=== PATIENT | male | born 1985 | race Caucasian/White ===

== ENCOUNTER 2018-12-15 22:12 | Observation (INO) | payer OTHER, SELFPAY ==
[~2018-12-15 22:12] MED LIST: ISOVUE-370 76%-LOCM 1 ML ONE
[2018-12-15] MEDS ORDERED: Fentanyl 100 MCG/2 ML VIAL ONE ×2 (22:17→23:52)
[2018-12-15] MEDS ORDERED: Ondansetron PF 4 MG/2 ML Vial ONE (22:37)
[2018-12-15 22:43] LABS: #Eosinphils 0.1 thou/uL (0.0-0.7); #Lymphocytes 2.5 thou/uL (1.20-3.40); #Neutrophils 7.9 thou/uL (1.40-6.50); %Basophils 0.3 % (0.0-1.0); %Eosinophils 1.1 % (0.0-10.0); %Lymphocytes 21.4 % (21.0-51.0); %Monocytes 8.5 % (0.0-10.0); %Neutrophils 68.7 % (42.0-75.0); Hemoglobin 15.1 g/dL (14.0-18.0); Mean Corpuscular HGB CONC 34.3 g/dL (32.0-36.0); Mean Corpuscular Hemoglobin 29.9 pg (27.0-31.0); Mean Corpuscular Volume 87.1 fL (78.0-98.0); Mean Platelet Volume 6.9 fL (7.4-10.4); Platelet Count 242 thou/uL (130-400); Red Blood Cell (RBC) Count 5.06 mill/uL (4.70-6.10); White Blood Cell (WBC) Count 11.5 thou/uL (4.8-10.8)
[2018-12-15 22:45] LABS: Prothrombin Time 12.8 SEC (12.0-14.7)
[2018-12-15 22:52] LABS: PTT 21.9 SEC (22.9-36.1)
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
[2018-12-15 23:05] LABS: ALT (SGPT) 36 U/L (8-55); AST (SGOT) 34 U/L (5-34); Albumin 4.5 g/dL (3.5-5.0); Alcohol Less than 10 mg/dL (Less than 10); Alkaline Phosphatase 64 U/L (40-150); Anion Gap 15 mmol/L (10-20); BUN (Urea Nitrogen) 20 mg/dL (8.9-20.6); Bilirubin, Total 0.5 mg/dL (0.2-1.2); Calc. Creatinine Clearance 0 mL/min (70-130); Calcium 9.9 mg/dL (7.8-10.44); Carbon Dioxide 24 mmol/L (22-29); Chloride 105 mmol/L (98-107); Estimated GFR-MDRD 88; Globulin 2.7 g/dL (2.4-3.5); Glucose 91 mg/dL (70-105); Potassium 3.5 mmol/L (3.5-5.1); Protein, Total 7.2 g/dL (6.0-8.3); Sodium 140 mmol/L (136-145)
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
[2018-12-16] MEDS ORDERED: Lidocaine 1% w/Epinephrine 1:100K 20 ML VIAL ONE (00:21)
[2018-12-16] MEDS ORDERED: Ondansetron PF 4 MG/2 ML Vial ONE (03:09)
[2018-12-16] MEDS ORDERED: Morphine 4 MG/ML VIAL ONE (03:49)
[2018-12-16] MEDS ORDERED: Ketorolac Tromethamine 30 MG/ML VIAL ONE (03:49)
[2018-12-16] MEDS ORDERED: Ketorolac Tromethamine 30 MG/ML VIAL IVP SCH (05:51)
[2018-12-16] MEDS ORDERED: Dextrose 50% Abboject 50 ML SYRINGE SLOW IVP PRN (05:51)
[2018-12-16] MEDS ORDERED: Scopolamine 1.5 mg/72 hour Patch TD SCH (05:51)
[2018-12-16] MEDS ORDERED: Acetaminophen 1,000 MG in Premix Bag 1 BAG IVPB SCH (05:51)
[2018-12-16] MEDS ORDERED: Ondansetron ODT 4 MG TAB PO PRN (05:51)
[2018-12-16] MEDS ORDERED: Dextrose 5% in Water 1,000 ML IV PRN (05:51)
[2018-12-16] MEDS ORDERED: traMADol HCl 50 MG TAB PO PRN (05:51)
[2018-12-16] MEDS ORDERED: Ondansetron PF 4 MG/2 ML Vial IVP PRN (05:51)
[2018-12-16] MEDS: Acetaminophen 500 MG TAB PO SCH ×3 (06:29→17:37)
[2018-12-16] MEDS: Cyclobenzaprine 10 MG TAB PO PRN ×2 (06:29→17:37)
[2018-12-16] MEDS: traMADol HCl 50 MG TAB PO PRN ×3 (06:29→17:37)
[2018-12-16 06:41] VITALS: BMI 30.3
[2018-12-16] MEDS ORDERED: FLUoxetine HCl 20 MG CAP PO SCH (13:45)
[2018-12-16] MEDS ORDERED: Ibuprofen 800 MG TAB PO SCH (14:00)
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
[2018-12-16 16:24] VITALS: BP 108/71; TEMP 98
[2018-12-17] MEDS ORDERED: FLUoxetine HCl 20 MG CAP PO SCH (09:00)
== END 2018-12-16 17:54 | disposition home or self-care (01) ==
LOC: ERS 22:12 → SURG A 12-16 03:15
PROVIDERS: ADMIT Specialist; ATTEND Specialist
DX: S02.113A Unspecified occipital condyle fracture, initial encounter for closed fracture (principal); S12.590A Other displaced fracture of sixth cervical vertebra, initial encounter for closed fracture; G89.11 Acute pain due to trauma; F41.9 Anxiety disorder, unspecified; Z79.899 Other long term (current) drug therapy; V63.5XXA Driver of heavy transport vehicle injured in collision with car, pick-up truck or van in traffic accident, initial encounter
CPT/HCPCS: 36415; 70450; 71260; 72125; 74177; 80053; 80307; 85025; 85610; 85730; 96361; 96374; 96375; 96376; G0378; G0390; J1885; J2001; J2270; J2405; J3010; Q9966

== ENCOUNTER 2019-01-05 14:37 | Outpatient (CLI) | payer OTHER ==
--- NOTE | 2019-01-05 15:04 | RAD ---
CERVICAL SPINE SERIES 3 VIEWS: Date: 01/05/19 HISTORY: Follow-up cervical spine fracture. COMPARISON: CT examination performed 12/15/18. FINDINGS: The inferior end plate changes of C6 appear fairly similar to the previous examination. Bony alignmen t is satisfactory. Disc spaces are all relatively well preserved. IMPRESSION: Stable inferior end plate fracture of C6. POS: [facility]
== END 2019-01-05 14:38 | disposition home or self-care (01) ==
LOC: TBSIIMAG 14:37
PROVIDERS: ATTEND Neurological Surgery
DX: S12.500A Unspecified displaced fracture of sixth cervical vertebra, initial encounter for closed fracture (principal)
CPT/HCPCS: 72040

== ENCOUNTER 2019-02-26 09:29 | Outpatient (CLI) | payer OTHER ==
--- NOTE | 2019-02-26 10:25 | RAD ---
CERVICAL SPINE SERIES 3 VIEWS: HISTORY: Followup of fracture. COMPARISON: 01/05/2019 study. FINDINGS: Vertebral bodies are normal in height. Disk spaces all appear well preserved. The minimal deformity to the inferior end plate of C6 is stable. Facets are in normal alignment. IMPRESSION: Stable exam. No change in the appearance of the inferior end plate fracture of C6. POS: [facility]
--- NOTE | 2019-02-26 10:34 | RAD ---
CERVICAL SPINE SERIES 2 VIEWS FLEXION AND EXTENSION: Date: 02/26/19 COMPARISON: Earlier examination of same date which included AP and lateral standard views. HISTORY: Cervical spine fracture. FINDINGS: The compression changes involving the inferior end plate of C6 are again demonstrated. No abnormal mo tion on flexion or extension. IMPRESSION: No abnormal motion detected on the flexion or extension views. POS: [facility]
== END 2019-02-26 09:30 | disposition home or self-care (01) ==
LOC: TBSIIMAG 09:29
PROVIDERS: ATTEND Neurological Surgery
DX: S12.500D Unspecified displaced fracture of sixth cervical vertebra, subsequent encounter for fracture with routine healing (principal)
CPT/HCPCS: 72040

== ENCOUNTER 2019-05-19 09:03 | Outpatient (CLI) | payer OTHER ==
[2019-05-19 10:01] LABS: #Eosinphils 0.1 thou/uL (0.0-0.7); #Lymphocytes 2.1 thou/uL (1.20-3.40); #Monocytes 0.6 thou/uL (0.11-0.59); #Neutrophils 3.5 thou/uL (1.40-6.50); %Basophils 0.3 % (0.0-1.0); %Eosinophils 1.6 % (0.0-10.0); %Lymphocytes 33.5 % (21.0-51.0); %Monocytes 9.2 % (0.0-10.0); %Neutrophils 55.4 % (42.0-75.0); Hemoglobin 15.5 g/dL (14.0-18.0); Mean Corpuscular HGB CONC 34.8 g/dL (32.0-36.0); Mean Corpuscular Hemoglobin 29.7 pg (27.0-31.0); Mean Corpuscular Volume 85.5 fL (78.0-98.0); Mean Platelet Volume 7.4 fL (7.4-10.4); Platelet Count 215 thou/uL (130-400); RBC Distribution Width 11.7 % (11.5-14.5); Red Blood Cell (RBC) Count 5.23 mill/uL (4.70-6.10); White Blood Cell (WBC) Count 6.3 thou/uL (4.8-10.8)
== END 2019-05-19 09:04 | disposition home or self-care (01) ==
LOC: LABBT 09:03
PROVIDERS: ATTEND Orthopaedic Surgery
DX: Z01.812 Encounter for preprocedural laboratory examination (principal); S43.004A Unspecified dislocation of right shoulder joint, initial encounter
CPT/HCPCS: 85025

== ENCOUNTER 2019-05-21 05:53 | Day surgery (SDC) | payer OTHER ==
[2019-05-19 09:18] VITALS: BMI 30.3
[2019-05-21] MEDS ORDERED: Midazolam HCl 2 mg/2 ml Vial ONE ×2 (06:29→07:17)
[2019-05-21] MEDS ORDERED: Fentanyl 100 MCG/2 ML VIAL ONE ×2 (06:29→07:17)
[2019-05-21] MEDS ORDERED: Bupivacaine/Epinephrine 0.25% 30 ML VIAL ONE (07:03)
[2019-05-21] MEDS ORDERED: HYDROcodone/Acetaminophen 10/325 mg Tablet PO PRN ×2 (07:50)
[2019-05-21] MEDS ORDERED: Ondansetron PF 4 MG/2 ML Vial IVP PRN (07:50)
[2019-05-21] MEDS ORDERED: traMADol HCl 50 MG TAB PO PRN ×2 (07:50)
[2019-05-21] MEDS ORDERED: Promethazine HCl 25 MG/ML VIAL IM PRN (07:50)
[2019-05-21] MEDS ORDERED: Zolpidem Tartrate 5 MG TAB PO PRN (07:50)
[2019-05-21] MEDS ORDERED: Ropivacaine 0.2% 550 ML 550 ML NERVE BLCK SCH (07:50)
[2019-05-21] MEDS ORDERED: Ketorolac Tromethamine 30 MG/ML VIAL IVP SCH (12:00)
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
== END 2019-05-21 12:45 | disposition home or self-care (01) ==
LOC: SDC 05:53
PROVIDERS: ATTEND Orthopaedic Surgery
PROC: 0RQJ0ZZ Repair Right Shoulder Joint, Open Approach (ICD-10-PCS; principal; 2019-05-21)
PROC: 3E0T3BZ Introduction of Anesthetic Agent into Peripheral Nerves and Plexi, Percutaneous Approach (ICD-10-PCS; principal; 2019-05-21)
DX: S43.401A Unspecified sprain of right shoulder joint, initial encounter (principal); F41.9 Anxiety disorder, unspecified; G89.18 Other acute postprocedural pain; Z79.899 Other long term (current) drug therapy; Z87.891 Personal history of nicotine dependence
CPT/HCPCS: A4306; C1713; J0690; J2250; J2795; J3010